=== PATIENT | male | born 1945 | race Caucasian/White ===

== ENCOUNTER 2020-11-21 19:06 | Emergency (ER) | payer OTHER, MEDICARE ==
[2020-11-21] MEDS ORDERED: ACETAMINOPHEN 500 MG TABLET (FP) PO ONE (19:32)
[2020-11-21 19:38] VITALS: BP 167/82; PULSE 18; TEMP 100.8; BMI 29.2
[2020-11-21] MEDS ORDERED: ACETAMINOPHEN 500 MG TABLET (FP) ONE (19:42)
== END 2020-11-21 19:57 | disposition home or self-care (01) ==
LOC: FER 19:06
DX: M79.10 Myalgia, unspecified site (principal); Z11.52 Encounter for screening for COVID-19
CPT/HCPCS: 99283-25; C9803; U0003; U0005

== ENCOUNTER 2021-05-30 10:55 | Day surgery (SDC) | payer OTHER, MEDICARE ==
[2021-05-25 15:33] VITALS: BMI 28.5
[2021-05-30 13:22] VITALS: BP 132/74; PULSE 58; TEMP 97.8
== END 2021-05-30 13:30 | disposition home or self-care (01) ==
LOC: FASU-ENDO 10:55
PROVIDERS: ATTEND Internal Medicine Gastroenterology
PROC: 0DBL8ZX Excision of Transverse Colon, Via Natural or Artificial Opening Endoscopic, Diagnostic (ICD-10-PCS; 2021-05-30)
PROC: 0DBN8ZX Excision of Sigmoid Colon, Via Natural or Artificial Opening Endoscopic, Diagnostic (ICD-10-PCS; 2021-05-30)
PROC: 0DBK8ZX Excision of Ascending Colon, Via Natural or Artificial Opening Endoscopic, Diagnostic (ICD-10-PCS; principal; 2021-05-30 12:11)
DX: Z86.010 Personal history of colon polyps (principal); D12.2 Benign neoplasm of ascending colon; D12.3 Benign neoplasm of transverse colon; D12.5 Benign neoplasm of sigmoid colon; K57.30 Diverticulosis of large intestine without perforation or abscess without bleeding; K64.8 Other hemorrhoids
CPT/HCPCS: 88305-TC

== ENCOUNTER 2021-11-21 09:52 | Day surgery (SDC) | payer OTHER, MEDICARE ==
[2021-11-20 09:20] VITALS: BMI 29.2
== END 2021-11-21 10:30 | disposition home or self-care (01) ==
LOC: FASU-ENDO 09:52
PROVIDERS: ATTEND Internal Medicine Gastroenterology
PROC: 0DJD8ZZ Inspection of Lower Intestinal Tract, Via Natural or Artificial Opening Endoscopic (ICD-10-PCS; principal; 2021-11-21)
DX: Z53.09 Procedure and treatment not carried out because of other contraindication (principal); Z86.010 Personal history of colon polyps

== ENCOUNTER 2022-01-30 10:14 | Day surgery (SDC) | payer OTHER, MEDICARE ==
[2022-01-29 13:36] VITALS: BMI 29.9
[2022-01-30 10:39] VITALS: RESP 18
[2022-01-30] MEDS ORDERED: PROPOFOL 80 ML ONE (11:00)
[2022-01-30 12:32] VITALS: BP 123/68; PULSE 66; TEMP 97.9
== END 2022-01-30 12:15 | disposition home or self-care (01) ==
LOC: FASU-ENDO 10:14
PROVIDERS: ATTEND Internal Medicine Gastroenterology
PROC: 0DBL8ZX Excision of Transverse Colon, Via Natural or Artificial Opening Endoscopic, Diagnostic (ICD-10-PCS; principal; 2022-01-30 11:12)
DX: Z12.11 Encounter for screening for malignant neoplasm of colon (principal); D12.2 Benign neoplasm of ascending colon; D12.3 Benign neoplasm of transverse colon; K64.1 Second degree hemorrhoids; K57.30 Diverticulosis of large intestine without perforation or abscess without bleeding; Z86.010 Personal history of colon polyps
CPT/HCPCS: 88305-TC